=== PATIENT | male | born 1995 | race Caucasian/White ===

== ENCOUNTER 2022-02-24 16:00 | Emergency (ER) | payer OTHER ==
[2022-02-24] MEDS ORDERED: Gentamicin 0.3% Ophth Soln 5 ML Bottle EYELF ONE ×2 (16:01→16:55)
[2022-02-24] MEDS ORDERED: Tetracaine HCl/PF 0.5% 4 ML Bottle EYELF ONE (16:28)
[2022-02-24] MEDS ORDERED: Fluorescein 1 MG Ophth Strip EYELF ONE (16:28)
[2022-02-24] MEDS ORDERED: Gentamicin 0.3% Ophth Soln 5 ML Bottle EYERT ONE (16:41)
== END 2022-02-24 17:04 | disposition home or self-care (01) ==
LOC: DL.ED 16:00
DX: S05.02XA Injury of conjunctiva and corneal abrasion without foreign body, left eye, initial encounter (principal); S05.12XA Contusion of eyeball and orbital tissues, left eye, initial encounter; I10 Essential (primary) hypertension; Z88.8 Allergy status to other drugs, medicaments and biological substances; W22.8XXA Striking against or struck by other objects, initial encounter
CPT/HCPCS: 99283; A9270-GY

== ENCOUNTER 2022-10-04 19:02 | Emergency (ER) | payer BC, MEDICARE ==
[2022-10-04] MEDS ORDERED: Sodium Chloride 0.9% 10 ML Syringe FLUSH PRN (19:19)
[2022-10-04] MEDS ORDERED: Ketorolac 30 MG/ML SDV IVPUSH ONE (19:52)
[2022-10-04 19:58] LABS: ANION GAP 11.7 mEq/L (7-13)
[2022-10-04 20:10] LABS: CORONAVIRUS COVID-19 NAA NEGATIVE (NEGATIVE); RESPIRATORY SYNCYTIAL VIR NAA NEGATIVE (NEGATIVE)
[2022-10-04] MEDS ORDERED: Potassium Chloride 10 MEQ Tab.ER PO ONE (20:21)
== END 2022-10-04 21:12 | disposition home or self-care (01) ==
LOC: DL.ED 19:02
DX: J10.1 Influenza due to other identified influenza virus with other respiratory manifestations (principal); E87.6 Hypokalemia; I10 Essential (primary) hypertension; K21.9 Gastro-esophageal reflux disease without esophagitis; Z91.030 Bee allergy status; Z91.09 Other allergy status, other than to drugs and biological substances; Z79.899 Other long term (current) drug therapy; Z20.822 Contact with and (suspected) exposure to COVID-19
CPT/HCPCS: 0241U; 36415; 71045; 80053; 84484; 85025; 86140; 93005; 96374; 99285; A9270; J1885; J3490

== ENCOUNTER 2023-10-26 07:33 | Inpatient (IN) | payer BC ==
[2023-10-26] MEDS ORDERED: Albuterol/Ipratropium 3.0-0.5 MG/3 ML Neb Soln NEB ONE (07:46)
[2023-10-26] MEDS ORDERED: Sodium Chloride 0.9% 1,000 ML IV ONE ×2 (07:46→09:36)
[2023-10-26] MEDS ORDERED: Morphine 4 MG/ML Syringe IVPUSH ONE (07:47)
[2023-10-26] MEDS ORDERED: Dexamethasone 4 MG/ML SDV IVPUSH ONE (07:47)
[2023-10-26] MEDS ORDERED: Ondansetron 4 MG/2 ML SDV IV ONE (07:47)
[2023-10-26] MEDS ORDERED: Benzonatate 100 MG Cap PO ONE (07:47)
[2023-10-26 08:07] LABS: BASOPHILS PERCENT AUTO 0.2 % (0.0-1.0); EOSINOPHILS PERCENT AUTO 0.2 % (1.0-3.0); HEMATOCRIT 41.6 % (40.0-54.0); HEMOGLOBIN 14.9 g/dL (14.0-18.0); LYMPHOCYTES PERCENT AUTO 8.8 % (20.5-50.1); MEAN CORPUSCULAR HEMOGLOBIN 31.2 pg (27.0-34.0); MEAN CORPUSCULAR HGB CONC 35.8 g/dL (33.0-35.0); MEAN CORPUSCULAR VOLUME 87.2 fL (80-100); MONOCYTES PERCENT AUTO 7.4 % (2-8); NEUTROPHILS PERCENT AUTO 83.4 % (42.2-75.2); PLATELET COUNT,PLT 350 10^3/uL (150-450); RED BLOOD CELL COUNT 4.77 10^6/uL (4.6-6.2); WHITE BLOOD CELL COUNT,WBC 22.9 10^3/uL (5.0-10.0)
[2023-10-26] MEDS ORDERED: Acetaminophen 325 MG Tab PO ONE (08:07)
[2023-10-26 08:34] LABS: A/G RATIO 0.7; ALBUMIN 3.4 g/dL (3.4-5.0); BILIRUBIN TOTAL 1.3 mg/dL (0.2-1.0); BUN/CREATININE RATIO 8.4 (No establ ref range); CALCIUM 8.5 mg/dL (8.5-10.1); CREATININE 1.07 mg/dL (0.70-1.30); EST CRCL DRUG DOSING (CG) 110.8 mL/min; PROTEIN TOTAL,TP 8.1 g/dL (6.4-8.2)
[2023-10-26] MEDS ORDERED: Vancomycin 2 GM in Sodium Chloride 0.9% 500 ML IV ONE (08:42)
[2023-10-26] MEDS ORDERED: cefTRIAXone 2 GM Vial IVPUSH ONE (08:42)
[2023-10-26] MEDS ORDERED: Azithromycin 500 MG in Sodium Chloride 0.9% 250 ML IV ONE (08:43)
[2023-10-26] MEDS ORDERED: Potassium Chloride 20 MEQ in Premix Bag 1 BAG IV ONE (08:46)
[2023-10-26] MEDS ORDERED: Lidocaine 1% 5 ML VIAL INJECT ONE (08:47)
[2023-10-26] MEDS ORDERED: Iopamidol 755 Mg/ML 100 ML Bottle IVPUSH ONE (08:48)
[2023-10-26] MEDS: Sodium Chloride 0.9% 2,000 ML IV ONE ×2 (09:06→10:00)
[2023-10-26 09:16] LABS: CORONAVIRUS COVID-19 NAA NEGATIVE (NEGATIVE); INFLUENZA A NAA NEGATIVE (NEGATIVE); INFLUENZA B NAA NEGATIVE (NEGATIVE); RESPIRATORY SYNCYTIAL VIR NAA NEGATIVE (NEGATIVE)
[2023-10-26] MEDS: Sodium Chloride 0.9% 10 ML Syringe FLUSH PRN (10:51)
[2023-10-26] MEDS ORDERED: Albuterol/Ipratropium 3.0-0.5 MG/3 ML Neb Soln NEB PRN (13:45)
[2023-10-26] MEDS ORDERED: Sodium Chloride 0.9% 1,000 ML IV SCH (13:45)
[2023-10-26] MEDS ORDERED: Acetaminophen 325 MG Tab PO PRN (13:51)
[2023-10-26] MEDS: guaiFENesin 600 MG Tab.ER PO SCH ×2 (18:11→21:07)
[2023-10-26] MEDS: Hydrochlorothiazide 25 MG Tab PO SCH (18:11)
[2023-10-27] MEDS ORDERED: hydrALAZINE 20 MG/ML SDV ONE (01:11)
[2023-10-27] MEDS ORDERED: hydrALAZINE 20 MG/ML SDV IVPUSH ONE ×2 (01:45→01:54)
[2023-10-27 06:13] LABS: HEMATOCRIT 39.9 % (40.0-54.0); HEMOGLOBIN 14.1 g/dL (14.0-18.0); MEAN CORPUSCULAR HEMOGLOBIN 31.3 pg (27.0-34.0); MEAN CORPUSCULAR HGB CONC 35.3 g/dL (33.0-35.0); MEAN CORPUSCULAR VOLUME 88.5 fL (80-100); PLATELET COUNT,PLT 363 10^3/uL (150-450); RED BLOOD CELL COUNT 4.51 10^6/uL (4.6-6.2)
[2023-10-27 06:42] LABS: BASOPHILS PERCENT AUTO 0.2 % (0.0-1.0); LYMPHOCYTES PERCENT AUTO 8.1 % (20.5-50.1); MONOCYTES PERCENT AUTO 5.8 % (2-8); NEUTROPHILS PERCENT AUTO 85.9 % (42.2-75.2)
[2023-10-27 06:46] LABS: BAND PERCENT MAN 3 %; LYMPHOCYTES PERCENT MAN 12 % (20-50); MONOCYTES PERCENT MAN 4 % (2-8); SEG NEUTROPHILS PERCENT MAN 81 % (42-75)
[2023-10-27] MEDS: cefTRIAXone 1 GM Vial IV SCH (07:57)
[2023-10-27] MEDS: Azithromycin 500 MG in Sodium Chloride 0.9% 250 ML IV SCH (08:01)
[2023-10-27] MEDS: Hydrochlorothiazide 25 MG Tab PO SCH (08:02)
[2023-10-27] MEDS: guaiFENesin 600 MG Tab.ER PO SCH ×2 (10:28→20:38)
[2023-10-27] MEDS ORDERED: hydrALAZINE 20 MG/ML SDV IVPUSH PRN (16:32)
[2023-10-28 06:20] LABS: BASOPHILS PERCENT AUTO 0.3 % (0.0-1.0); EOSINOPHILS PERCENT AUTO 1.1 % (1.0-3.0); HEMATOCRIT 40.9 % (40.0-54.0); HEMOGLOBIN 14.4 g/dL (14.0-18.0); MEAN CORPUSCULAR HEMOGLOBIN 31.3 pg (27.0-34.0); MEAN CORPUSCULAR HGB CONC 35.2 g/dL (33.0-35.0); MEAN CORPUSCULAR VOLUME 88.9 fL (80-100); MONOCYTES PERCENT AUTO 5.7 % (2-8); NEUTROPHILS PERCENT AUTO 70.9 % (42.2-75.2); PLATELET COUNT,PLT 391 10^3/uL (150-450); WHITE BLOOD CELL COUNT,WBC 15.2 10^3/uL (5.0-10.0)
[2023-10-28] MEDS: cefTRIAXone 1 GM Vial IV SCH (07:28)
[2023-10-28] MEDS: Sodium Chloride 0.9% 10 ML Syringe FLUSH PRN (07:28)
[2023-10-28] MEDS: Azithromycin 500 MG in Sodium Chloride 0.9% 250 ML IV SCH (07:37)
[2023-10-28] MEDS: Hydrochlorothiazide 25 MG Tab PO SCH (08:55)
[2023-10-28] MEDS: guaiFENesin 600 MG Tab.ER PO SCH (08:55)
[2023-10-28 09:10] LABS: ANION GAP 14.5 mEq/L (7-13); CALCIUM 8.3 mg/dL (8.5-10.1); CREATININE 0.81 mg/dL (0.70-1.30); EST CRCL DRUG DOSING (CG) 146.36 mL/min; POTASSIUM,K 3.5 mmol/L (3.5-5.1)
== END 2023-10-28 13:00 | disposition home or self-care (01) | DRG 720 ==
LOC: DL.ED 07:33 → DL.MS 11:27
PROVIDERS: ADMIT Internal Medicine; ATTEND Internal Medicine
DX: A41.9 Sepsis, unspecified organism (principal); J18.9 Pneumonia, unspecified organism; I10 Essential (primary) hypertension; E66.9 Obesity, unspecified; G47.33 Obstructive sleep apnea (adult) (pediatric); D72.829 Elevated white blood cell count, unspecified; F12.10 Cannabis abuse, uncomplicated; K21.9 Gastro-esophageal reflux disease without esophagitis; Z83.3 Family history of diabetes mellitus; Z82.49 Family history of ischemic heart disease and other diseases of the circulatory system; Z11.52 Encounter for screening for COVID-19; Z91.030 Bee allergy status; Z88.8 Allergy status to other drugs, medicaments and biological substances; Z68.37 Body mass index [BMI] 37.0-37.9, adult
CPT/HCPCS: 0241U; 36415; 71045; 71275; 80048; 80053; 83605; 84145; 84484; 85025; 87040; 87070; 87081; 87205; 87430; 93005; 93010; 94010; 94060; 94667; 94668; 94760; 96361; 96365; 96366; 96368; 96375; 99285; 99285-25; A9270-GY; J0360; J0456; J0696; J1100; J2405; J3370; J3480; J3490; J7030; J7040; J7050; J7620-GY; Q9967